=== PATIENT | female | born 1985 | race Caucasian/White ===

== ENCOUNTER 2023-07-03 16:13 | Outpatient (CLI) | payer BC, SELFPAY | END 2023-07-03 16:14 | disposition home or self-care (01) | PROVIDERS: Visit Provider Emergency Medicine | DX: R00.2 Palpitations (principal); R03.0 Elevated blood-pressure reading, without diagnosis of hypertension; E78.5 Hyperlipidemia, unspecified | CPT/HCPCS: 80048; 84443 ==